=== PATIENT | female | born 1980 | race African-American/Black ===

== ENCOUNTER 2024-01-30 12:35 | Emergency (ER) | payer OTHER ==
[~2024-01-30] VITALS: Ht 152.4 cm; Wt 52.3 kg
[~2024-01-30 12:35] MED LIST: CLEOCIN HCL300 MG PO; FLEXERIL 1010 MG/TAB PO; MULTI-VITAMIN W1 TA1 PO; ZOFRAN ODT4 MG PO
[2024-01-30 12:46] VITALS: TEMP 97.8
[2024-01-30] MEDS ORDERED: Albuterol/Ipratropium 3 MG-0.5 MG/3 ML Neb Soln IH ONE (13:30)
[2024-01-30] MEDS ORDERED: predniSONE 20 MG TAB PO ONE (13:30)
[2024-01-30] MEDS ORDERED: Albuterol 90 MCG/PUFF 8 GM MDI IH ONE (14:45)
[2024-01-30] MEDS ORDERED: PREDNISONE50 MG PO (14:49)
[2024-01-30 15:39] VITALS: BP 131/74; PULSE 74
== END 2024-01-30 15:39 | disposition home or self-care (01) ==
LOC: COL.ER 12:35
DX: J20.9 Acute bronchitis, unspecified (principal)
CPT/HCPCS: J7512